=== PATIENT | female | born 1955 | race African-American/Black ===

== ENCOUNTER 2023-03-27 07:52 | Emergency (ER) | payer OTHER ==
[2023-03-27] MEDS ORDERED: methylPREDNISolone Sod Succ/PF 125 MG/2 ML VIAL ONE (08:02)
[2023-03-27] MEDS ORDERED: diphenhydrAMINE 50 MG/ML VIAL ONE (08:02)
== END 2023-03-27 09:55 | disposition home or self-care (01) ==
LOC: NAV ERS 07:52
DX: T78.40XA Allergy, unspecified, initial encounter (principal); E11.22 Type 2 diabetes mellitus with diabetic chronic kidney disease; N18.30 Chronic kidney disease, stage 3 unspecified; J45.909 Unspecified asthma, uncomplicated; Z79.4 Long term (current) use of insulin; Z79.899 Other long term (current) drug therapy
CPT/HCPCS: 36416; 96374; 96375; J1200; J2930

== ENCOUNTER 2023-05-19 07:07 | Emergency (ER) | payer OTHER ==
[2023-05-19] MEDS ORDERED: methylPREDNISolone Sod Succ/PF 125 MG/2 ML VIAL ONE (07:38)
== END 2023-05-19 08:06 | disposition home or self-care (01) ==
LOC: NAV ERS 07:07
DX: L50.9 Urticaria, unspecified (principal); E11.22 Type 2 diabetes mellitus with diabetic chronic kidney disease; N18.30 Chronic kidney disease, stage 3 unspecified; J45.909 Unspecified asthma, uncomplicated; Z79.4 Long term (current) use of insulin
CPT/HCPCS: 96372; 99282; J2930

== ENCOUNTER 2023-12-28 14:38 | Outpatient (CLI) | payer OTHER | END 2023-12-28 14:39 | disposition home or self-care (01) | LOC: NAV RAD 14:38 | PROVIDERS: ATTEND Family Medicine | DX: D72.829 Elevated white blood cell count, unspecified (principal) | CPT/HCPCS: 71046 ==

== ENCOUNTER 2025-10-04 09:11 | Outpatient (CLI) | payer OTHER | END 2025-10-04 09:12 | disposition home or self-care (01) | LOC: NAV RAD 09:11 | PROVIDERS: ATTEND Family Medicine | DX: R05.1 Acute cough (principal) | CPT/HCPCS: 71046 ==